=== PATIENT | female | born 1960 | race Caucasian/White ===

== ENCOUNTER 2017-07-04 07:16 | Inpatient (IN) ==
--- NOTE | 2017-07-04 16:33 | Internal Med History&Physical ---
Date of Encounter: 07/04/17 Time of Encounter: 16:31 Assessment and Plan (1) CVA (cerebral vascular accident) Current visit: Yes Status: Acute Patient is here for rehabilitation. She status post CVA after being admitted for CHF Qualifiers: CVA mechanism: other Qualified Code(s): I63.8 - Other cerebral infarction (2) Weakness of right lower extremity Current visit: Yes Status: Acute Consequences of ischemic infarct in the viri (3) Diabetes Current visit: No Status: Chronic Qualifiers: Diabetes mellitus type: type 2 Diabetes mellitus complication status: with unspecified complications Diabetes mellitus middle or intermediate school principal insulin use: with middle or intermediate school principal use Qualified Code(s): E11.8 - Type 2 diabetes mellitus with unspecified complications (4) Morbid obesity with BMI of 40.0-44.9, adult Current visit: No Status: Chronic Internal Medicine - H&P: HPI Chief complaint: Patient is morbidly obese his breathing problems congestive heart failure a Admitted From: Hospital to Hospital Transfer Plans for Post Hospital Care: Home History of present illness: Ms. Lopez is a 56 year old female Past Med Surg Social Fam HX - Past Medical History Medical history: asthma, CHF, CVA, diabetes, hyperlipidemia, hypertension, renal disease, other Psychiatric history: anxiety, depression - Past Surgical History Surgical History: other - Social History Smoking Status: Former smoker Smokeless Tobacco Status: No Alcohol use: none Drug use: none - Family History Mother Family Member Ethnicity: Non- Living Status: Still Living Hx Family Cardiac Disorders: Yes (Stroke) Hx Family Endocrine Disorder: Yes (Diabetes) Hx Family Neurologic Disorders: Yes (Stroke) Brother Family Member Ethnicity: Non- Living Status: Still Living Hx Family Cancer: Yes (Cancerous mole) Sister Family Member Ethnicity: Non- Living Status: Still Living Hx Family GI Disorders: Yes (Colon issues) Grandmother Family Member Ethnicity: Non- Living Status: Hx Family Cancer: Yes (Breast) Father Adopted: No Family Member Ethnicity: Non- Living Status: Hx Family Cardiac Disorders: Yes (CAD) Hx Family Respiratory Disorders: Yes Hx Family Cancer: Yes (Lung) Hx Family Endocrine Disorder: Yes (DM) Daughter Adopted: No Family Member Ethnicity: Non- Living Status: Still Living Hx Family Cardiac Disorders: Yes Hx Family Endocrine Disorder: Yes Hx Family Neuromuscular Disorders: Yes Hx Family Neurologic Disorders: Yes Internal Medicine - H&P: Meds Escitalopram [Lexapro] 20 mg PO DAILY #30 tablet 04/03/15 [Rx] Simvastatin [Zocor] 40 mg PO HS #30 tablet 04/03/15 [Rx] Lisinopril [Zestril] 20 mg PO DAILY 12/13/15 [History] Aspirin [Ecotrin] 325 mg PO DAILY 06/21/16 [History] Ferrous Sulfate 325 mg PO BIDWM #60 tablet 05/17/17 [Rx] Ergocalciferol (VITAMIN D2) [Vitamin D2] 50,000 unit PO GOMES 06/13/17 [History] Insulin NPH/REG 70/30 [HumuLIN 70/30 VIAL] 25 unit SQ BIDWM 06/13/17 [History] Gabapentin [Neurontin] 300 mg PO TID #90 capsule 06/19/17 [Rx] Docusate [Colace] 200 mg PO DAILY 06/27/17 [History] Acetaminophen [Tylenol] 650 mg PO Q6HR PRN tablet 07/04/17 [Rx] Benzonatate [Tessalon] 100 mg PO TID PRN capsule 07/04/17 [Rx] Clopidogrel [Plavix] 75 mg PO DAILY tablet 07/04/17 [Rx] Folic Acid 5 mg PO DAILY tablet 07/04/17 [Rx] Furosemide [Lasix] 40 mg PO BIDDIURETIC tablet 07/04/17 [Rx] HYDROcodone/Acet 5/325 mg [Hewlett 5-325 mg] 1 tab PO Q4HR PRN #14 tablet [Rx] Ipratropium/Albuterol Neb [Duoneb] 3 ml IH [id number] PRN inhsol 07/04/17 [Rx] Labetalol [Trandate] 200 mg PO Q8HR tablet 07/04/17 [Rx] amLODIPine [Norvasc] 10 mg PO DAILY #0 tablet 07/04/17 [Rx] 3 Allergy/AdvReac Type Severity Reaction Status Date / Time No Known Allergies Allergy Verified 06/27/17 12:19 All Systems PM: A 10-system review of systems was performed and is negative for pertinent findings except as documented above in the HPI. - Constitutional Constitutional: falls, lethargy, no anorexia, no chills, no excessive sweating, no fatigue, no malaise, no night sweats, no weakness, no weight gain, no weight loss - EENT Eyes: no blurry vision, no change in vision, no decreased night vision, no diplopia, no discharge, no dry eye, no floaters, no irritation, no itchy eyes, no loss of peripheral vision, no loss of vision, no pain, no seeing flashes, no tunnel vision, no other visual disturbances Ears: no decreased hearing, no ear discharge, no ear pain, no tinnitus Nose, mouth and throat: no bleeding gums, no change in voice, no dental pain, no dry mouth, no dysphagia, no epistaxis, no lip swelling, no mouth pain, no nasal congestion, no nasal discharge, no nasal obstruction, no neck mass, no odynophagia, no post-nasal drip, no sinus pain, no sinus pressure, no sore throat, no throat swelling, no tongue swelling - Breasts Breasts: no change in shape, no mass, no pain, no nipple discharge, no skin changes, no swelling - Cardiovascular Cardiovascular ROS IM: diaphoresis, dyspnea, dyspnea on exertion, edema, irregular heart rhythm, orthopnea, no chest pain, no claudication, no lightheadedness, no palpitations, no paroxysmal nocturnal dyspnea, no syncope - Respiratory Respiratory: as per HPI, cough, no dyspnea on exertion, no wheezing, no snoring , no stridor, no pain on inspiration, no chest congestion, no excessive phlegm production, no change in phlegm color, no pain with cough - Gastrointestinal Gastrointestinal: no abdominal pain, no belching, no bloating, no change in bowel habits, no change in stool character, no coffee ground emesis, no constipation, no cramping, no diarrhea, no dyspepsia, no excessive flatus, no fecal incontinence, no heartburn, no hematemesis, no hematochezia, no loose stools, no melena, no nausea, no odynophagia, no tenesmus, no vomiting - Genitourinary Genitourinary: no abnormal menses, no abnormal vaginal bleeding, no amenorrhea, no breast change in shape, no breast mass, no breast pain, no breast skin changes, no breast swelling, no change in libido, no change in urinary stream, no difficulty conceiving, no difficulty urinating, no dysmenorrhea, no dyspareunia, no flank pain, no genital lesions, no genital pruritis, no hematuria, no hot flashes, no light periods, no menorrhagia, no metrorrhagia, no nipple discharge, no nocturia, no pelvic pain, no post void dribbling, no prolapse symptoms, no sexual dysfunction, no urinary frequency, no urinary hesitancy, no urinary incontinence, no urinary urgency, no vaginal discharge, no vaginal dryness, no vaginal odor, no vaginal pruritis Menstruation: amenorrhea (Not applicable), amenorrhea on BC - Musculoskeletal Musculoskeletal ROS IM: back pain, joint swelling, muscle weakness, neck pain, stiffness, no arthralgias, no atrophy, no deformity, no limited range of motion , no muscle cramps, no myalgias, no numbness, no tingling - Integumentary Integumentary IM: erythema, no new lesions, no pruritus, no rash, no skin ulcer , no unusual bruising, no jaundice - Neurological Neurological ROS: disequilibrium, focal weakness, frequent falls, no abnormal gait, no abnormal hearing, no abnormal movements, no abnormal speech, no behavioral changes, no burning sensations, no confusion, no convulsions, no dizziness, no headache(s), no loss of vision, no memory loss, no numbness, no paresthesias, no radicular pain, no restless legs, no tingling, no tremor(s), no vertigo, no weakness, no other visual disturbances - Psychiatric Psychiatric: no abnormal sleep pattern, no anhedonia, no behavioral changes, no change in appetite, no change in libido, no difficulty concentrating, no hallucinations, no homicidal ideation, no hopelessness, no irritability, no memory loss - Endocrine Endocrine IM: no cold intolerance, no deeping of the voice, no excessive sweating, no fatigue, no flushing, no heat intolerance, no polydipsia, no polyphagia, no polyuria - Hematologic/Lymphatic Hematologic/Lymphatic: no easy bleeding, no easy bruising, no lymphadenopathy - Allergic/Immunologic Allergic/Immunologic: no tongue swelling, no throat swelling, no itchy eyes, no uticaria, no wheezing, no GI upset with certain foods, no lip swelling, no other - Head Head exam: Present: atraumatic, normal inspection, normocephalic - Neck Neck exam general surgery: Present: supple, trachea midline. Absent: lymphadenopathy - Respiratory Respiratory exam: Present: CTAB. Absent: accessory muscle use, rales, rhonchi, wheezes - Cardiovascular Cardiovascular exam: Present: RRR, +S1, +S2. Absent: diastolic murmur, gallop, rubs, systolic murmur Internal Med - H&P Results - Labs Labs: Lab is pending
[2017-07-04] MEDS ORDERED: Ipratropium/Albuterol Neb 3 ML IH PRN (17:11)
[2017-07-04] MEDS ORDERED: Acetaminophen 325 MG TABLET PO PRN (17:11)
[2017-07-04] MEDS ORDERED: Benzonatate 100 MG CAPSULE PO PRN (17:11)
[2017-07-04] MEDS: Insulin NPH/REG 70/30 100 UNIT/ML (x5UNIT) SQ SCH (18:33)
[2017-07-04] MEDS: Insulin NPH/REG 70/30 300 UNIT/3 ML per UNIT SQ SCH (18:37)
[2017-07-04] MEDS: *HR* HYDROcodone/Acet 5/325 mg TABLET PO PRN (21:45)
[2017-07-04] MEDS: Gabapentin 300 MG CAPSULE PO SCH (21:45)
[2017-07-05 05:45] LABS: Basophils % 0.4 %; Eosinophils # 0.4 K/mcL (0.0-0.6); Eosinophils % 5.3 %; Hematocrit 26.4 % (35.3-44.9); Hemoglobin 8.4 g/dL (11.5-15.4); Immature Granulocytes % 0.1 % (0-4); Lymphocytes # 1.7 K/mcL (0.6-4.6); Lymphocytes % 23.6 %; Mean Corpuscular HGB Conc 31.8 g/dL (31.6-35.5); Mean Corpuscular Hemoglobin 27.1 pg (28.0-33.3); Mean Corpuscular Volume 85.2 fL (83.0-100.0); Mean Platelet Volume 10.4 fL (9.4-12.4); Monocytes # 0.6 K/mcL (0.0-1.3); Monocytes % 8.6 %; Neutrophils # 4.5 K/mcL (1.6-8.9); Platelet Count 338 K/mcL (140-400); Red Cell Distribution Width 13.9 % (11.5-14.5)
[2017-07-05 05:52] LABS: INR 1.2; Prothrombin Time 12.5 Seconds (9.4-12.1)
[2017-07-05 06:01] LABS: Calcium 8.7 mg/dL (8.6-10.8); Potassium 4.2 mEq/L (3.5-4.5)
[2017-07-05] MEDS ORDERED: Furosemide 40 MG TABLET PO SCH (08:00)
[2017-07-05] MEDS: Aspirin Enteric Coated 325 MG Tablet PO SCH (08:02)
[2017-07-05] MEDS: *HR* HYDROcodone/Acet 5/325 mg TABLET PO PRN ×4 (08:02→23:27)
[2017-07-05] MEDS: Gabapentin 300 MG CAPSULE PO SCH ×3 (08:03→23:26)
[2017-07-05] MEDS: amLODIPine 5 MG TABLET PO SCH (08:03)
[2017-07-05] MEDS: Folic Acid 1 MG TABLET PO SCH (08:04)
[2017-07-05] MEDS: Lisinopril 20 MG TABLET PO SCH (08:04)
[2017-07-05] MEDS: Insulin NPH/REG 70/30 300 UNIT/3 ML per UNIT SQ SCH (08:12)
--- NOTE | 2017-07-05 15:26 | Internal Med Progress Note ---
Date of Encounter: 07/05/17 Time of Encounter: 15:24 - Assessment and plan (1) CVA (cerebral vascular accident) Current Visit: Yes Status: Acute Assessment and plan: She was admitted to the hospital for shortness of breath. She has chronic underlying diseases such as CHF but woke up with weakness on the right side and some dysarthria Qualifiers: CVA mechanism: other Qualified Code(s): I63.8 - Other cerebral infarction (2) Weakness of right lower extremity Current Visit: Yes Status: Acute Assessment and plan: No nuts which she is here for she is working with therapist (3) Diabetes Current Visit: No Status: Chronic Assessment and plan: Known diabetic following blood sugars and blood sugar was high but the other 2 were at least modest. Qualifiers: Diabetes mellitus type: type 2 Diabetes mellitus complication status: with unspecified complications Diabetes mellitus jail insulin use: with jail use Qualified Code(s): E11.8 - Type 2 diabetes mellitus with unspecified complications (4) Morbid obesity with BMI of 40.0-44.9, adult Current Visit: No Status: Chronic Assessment and plan: Noted - Time Spent With Patient less than 15 minutes - Subjective Interval history: Actually patient did better than I anticipated. Her speech is a little bit easier to come out I think she is not as tired as she probably was yesterday. Also the back pain and neck pain which are preexisted to her stroke are helped a lot bye K pads. So we will continue to do that. OT said with minimal assistance she got to the edge of the bed and got up and was able to scoot to the chair. She has a walk any distance yet. - Constitutional Vitals: Temp Pulse Resp BP Pulse Ox 98 F 95 14 176/90 95 07/05/17 08:00 07/05/17 08:00 07/05/17 08:00 07/05/17 08:00 07/05/17 08:00 General appearance: Present: disheveled, A&O X 3, morbidly obese, pleasant - Head Head exam: Present: atraumatic, normal inspection, normocephalic - Neck Neck exam general surgery: Present: supple, trachea midline. Absent: lymphadenopathy - Respiratory Respiratory exam: Present: CTAB. Absent: accessory muscle use, rales, rhonchi, wheezes - Cardiovascular Cardiovascular exam: Present: RRR, +S1, +S2. Absent: diastolic murmur, gallop, rubs, systolic murmur Internal Medicine: Result - Labs CBC & Chem 7: 07/05/17 05:10 07/05/17 05:10 Labs: Short CBC 07/05/17 Range/Units 05:10 WBC 7.2 (4.3-11.1) K/mcL Hgb 8.4 L (11.5-15.4) g/dL Hct 26.4 L (35.3-44.9) % Plt Count 338 (140-400) K/mcL Neutrophils # 4.5 (1.6-8.9) K/mcL BMP 07/05/17 05:10 Sodium 141 Potassium 4.2 Chloride 112 H Carbon Dioxide 24 BUN 49 H Creatinine 2.00 H Glucose 146 H Calcium 8.7 She has a little chronic renal failure will follow this. - ABG Interpretation ABG results: PT/INR, D-dimer PT 12.5 Seconds (9.4-12.1) H 07/05/17 05:10 Consult Discharge Plan - Plan Referrals: Flaco Hernandez MD [Primary Care Provider] -
[2017-07-05] MEDS: Furosemide 40 MG TABLET PO SCH (16:26)
[2017-07-05] MEDS: Bumetanide 1 MG TABLET PO SCH (16:26)
[2017-07-05] MEDS: Insulin NPH/REG 70/30 100 UNIT/ML (x5UNIT) SQ SCH (17:33)
[2017-07-06] MEDS: Bumetanide 1 MG TABLET PO SCH ×2 (08:03→16:53)
[2017-07-06] MEDS: *HR* HYDROcodone/Acet 5/325 mg TABLET PO PRN ×3 (08:03→20:10)
[2017-07-06] MEDS: amLODIPine 5 MG TABLET PO SCH (08:03)
[2017-07-06] MEDS: Aspirin Enteric Coated 325 MG Tablet PO SCH (08:03)
[2017-07-06] MEDS: Lisinopril 20 MG TABLET PO SCH (08:04)
[2017-07-06] MEDS: Folic Acid 1 MG TABLET PO SCH (08:05)
[2017-07-06] MEDS: Furosemide 40 MG TABLET PO SCH ×2 (08:05→16:54)
[2017-07-06] MEDS: Gabapentin 300 MG CAPSULE PO SCH ×3 (08:06→20:10)
[2017-07-06] MEDS: Insulin NPH/REG 70/30 100 UNIT/ML (x5UNIT) SQ SCH ×2 (08:08→16:51)
--- NOTE | 2017-07-06 16:54 | Internal Med Progress Note ---
Date of Encounter: 07/06/17 Time of Encounter: 16:29 - Assessment and plan (1) CVA (cerebral vascular accident) Current Visit: Yes Status: Acute Assessment and plan: Patient had a CVA while undergoing treatment for CHF and edema and was transferred here for rehabilitation. She speaking much better and actually moving labetalol already Qualifiers: CVA mechanism: other Qualified Code(s): I63.8 - Other cerebral infarction (2) Weakness of right lower extremity Current Visit: Yes Status: Acute Assessment and plan: CPT OT TR notes that she is actually moving her right side a little better (3) Diabetes Current Visit: No Status: Chronic Assessment and plan: Will follow blood sugars Qualifiers: Diabetes mellitus type: type 2 Diabetes mellitus complication status: with unspecified complications Diabetes mellitus terminologist insulin use: with terminologist use Qualified Code(s): E11.8 - Type 2 diabetes mellitus with unspecified complications (4) Morbid obesity with BMI of 40.0-44.9, adult Current Visit: No Status: Chronic Assessment and plan: Noted - Time Spent With Patient less than 15 minutes - Subjective Interval history: The readings doing well speech reported that she had some throat erythema but it looks fine today. She does not complain of anything except cold. - Constitutional Vitals: Temp Pulse Resp BP Pulse Ox 98.0 F 70 16 177/90 96 07/06/17 11:00 07/06/17 12:53 07/06/17 12:53 07/06/17 12:53 07/06/17 12:53 General appearance: Present: disheveled, A&O X 3, morbidly obese, pleasant - Head Head exam: Present: atraumatic, normal inspection, normocephalic - Neck Neck exam general surgery: Present: supple, trachea midline. Absent: lymphadenopathy - Respiratory Respiratory exam: Present: CTAB. Absent: accessory muscle use, rales, rhonchi, wheezes - Cardiovascular Cardiovascular exam: Present: RRR, +S1, +S2. Absent: diastolic murmur, gallop, rubs, systolic murmur Internal Medicine: Result - Labs CBC & Chem 7: 07/05/17 05:10 07/05/17 05:10 - ABG Interpretation ABG results: PT/INR, D-dimer PT 12.5 Seconds (9.4-12.1) H 07/05/17 05:10 Consult Discharge Plan - Plan Referrals: Andi Doshi DO [Partnered Physician] - 07/10/17 10:00 am ([facility] [facility] [address] [facility]. [facility] [id number] ) Flaco Hernandez MD [Primary Care Provider] -
[2017-07-07] MEDS: amLODIPine 5 MG TABLET PO SCH (09:06)
[2017-07-07] MEDS: Aspirin Enteric Coated 325 MG Tablet PO SCH (09:06)
[2017-07-07] MEDS: *HR* HYDROcodone/Acet 5/325 mg TABLET PO PRN ×3 (09:06→21:33)
[2017-07-07] MEDS: Folic Acid 1 MG TABLET PO SCH (09:07)
[2017-07-07] MEDS: Gabapentin 300 MG CAPSULE PO SCH ×3 (09:07→21:33)
[2017-07-07] MEDS: Furosemide 40 MG TABLET PO SCH ×2 (09:07→16:06)
[2017-07-07] MEDS: Bumetanide 1 MG TABLET PO SCH ×2 (09:07→16:05)
[2017-07-07] MEDS: Lisinopril 20 MG TABLET PO SCH (09:08)
[2017-07-07] MEDS: Insulin NPH/REG 70/30 100 UNIT/ML (x5UNIT) SQ SCH ×2 (10:12→17:02)
[2017-07-07 16:29] LABS: Calcium 9.3 mg/dL (8.6-10.8); Potassium 4.2 mEq/L (3.5-4.5)
--- NOTE | 2017-07-07 18:53 | Internal Med Progress Note ---
Date of Encounter: 07/07/17 Time of Encounter: 18:32 - Assessment and plan (1) CVA (cerebral vascular accident) Current Visit: Yes Status: Acute Assessment and plan: Patient had a CVA while undergoing treatment for CHF and edema and was transferred here for rehabilitation. She speaking much better and improved strength Qualifiers: CVA mechanism: other Qualified Code(s): I63.8 - Other cerebral infarction (2) Weakness of right lower extremity Current Visit: Yes Status: Acute Assessment and plan: CPT OT TR notes that she is actually moving her right side a little better (3) Diabetes Current Visit: No Status: Chronic Assessment and plan: Will follow blood sugars Qualifiers: Diabetes mellitus type: type 2 Diabetes mellitus complication status: with unspecified complications Diabetes mellitus time study engineer insulin use: with time study engineer use Qualified Code(s): E11.8 - Type 2 diabetes mellitus with unspecified complications (4) HTN (hypertension) Current Visit: No Status: Chronic Assessment and plan: - not controlled - one time amlodipin 5mg - continue to watch in 30min, if still elevated >150/90 can administer another 5mg Qualifiers: Hypertension type: essential hypertension Qualified Code(s): I10 - Essential (primary) hypertension (5) CKD (chronic kidney disease) stage 3, GFR 30-59 ml/min Current Visit: No Status: Chronic (6) Congestive heart failure Current Visit: No Status: Acute Assessment and plan: - elevated BP and crackles on examination today indicative of fluid overload - Pt is on BID lasix 80mg - Also on bumex 0.5mg BID which is increased to 1mg BID - continue fluid restriction of 1500ml daily - cardiac diet Qualifiers: Congestive heart failure type: unspecified congestive heart failure type Congestive heart failure chronicity: acute on chronic Qualified Code(s): I50.9 - Heart failure, unspecified - Time Spent With Patient 25 - 35 minutes - Subjective Interval history: no pain, no complaints Tried from physical therapy and reports feeling stronger now - Constitutional Vitals: Temp Pulse Resp BP Pulse Ox 97.5 F L 72 16 180/81 92 07/07/17 08:00 07/07/17 08:00 07/07/17 08:00 07/07/17 08:00 07/07/17 08:00 General appearance: Present: disheveled, A&O X 3, morbidly obese, pleasant - Respiratory Respiratory exam: Absent: accessory muscle use, rhonchi, stridor, wheezes - Cardiovascular Cardiovascular exam: Present: RRR, +S1, +S2. Absent: rubs - GI/Abdominal GI/Abdominal exam: Present: normal bowel sounds - Extremities Exam Extremities exam: Absent: calf tenderness - Neurological Exam Neurological exam: Absent: reflexes normal, strengths equal and symetr throughout, facial droop, speech deficit Additional comments: brisk reflexes Lower extremity 3/5 bilaterally discrepancy of the upper extremity strength - Psychiatric Psychiatric exam: Absent: agitated, anxious, depressed Internal Medicine: Result - Labs CBC & Chem 7: 07/05/17 05:10 07/07/17 16:00 Labs: BMP 07/07/17 16:00 Sodium 140 Potassium 4.2 Chloride 110 H Carbon Dioxide 22 BUN 45 H Creatinine 2.08 H Glucose 141 H Calcium 9.3 - ABG Interpretation ABG results: PT/INR, D-dimer PT 12.5 Seconds (9.4-12.1) H 07/05/17 05:10 Consult Discharge Plan - Plan Referrals: Andi Doshi DO [Partnered Physician] - 07/10/17 10:00 am ([facility] [address] [facility] [id number] ) Flaco Hernandez MD [Primary Care Provider] -
[2017-07-07] MEDS ORDERED: amLODIPine 5 MG TABLET PO ONE (19:15)
[2017-07-08] MEDS: Insulin NPH/REG 70/30 100 UNIT/ML (x5UNIT) SQ SCH ×2 (09:46→17:28)
[2017-07-08] MEDS: Aspirin Enteric Coated 325 MG Tablet PO SCH (09:53)
[2017-07-08] MEDS: *HR* HYDROcodone/Acet 5/325 mg TABLET PO PRN ×2 (09:54→21:35)
[2017-07-08] MEDS: Bumetanide 1 MG TABLET PO SCH ×2 (09:54→17:29)
[2017-07-08] MEDS: Furosemide 40 MG TABLET PO SCH ×2 (09:54→17:29)
[2017-07-08] MEDS: Gabapentin 300 MG CAPSULE PO SCH ×3 (09:55→21:34)
[2017-07-08] MEDS: Folic Acid 1 MG TABLET PO SCH (09:55)
[2017-07-08] MEDS: amLODIPine 5 MG TABLET PO SCH (09:55)
[2017-07-08] MEDS: Lisinopril 20 MG TABLET PO SCH (09:56)
[2017-07-08] MEDS ORDERED: D5% in Water 1,000 ML IVC PRN (13:46)
[2017-07-08] MEDS ORDERED: Dextrose Gel 15 GM PO PRN ×2 (13:46)
[2017-07-08] MEDS ORDERED: *HR* Dextrose 50 % in Water (Syg) 50 ML SYRINGE IVP PRN (13:46)
--- NOTE | 2017-07-08 14:13 | Internal Med Progress Note ---
Date of Encounter: 07/08/17 Time of Encounter: 14:11 - Assessment and plan (1) CVA (cerebral vascular accident) Current Visit: Yes Status: Acute Assessment and plan: -Patient had a CVA while undergoing treatment for CHF -transferred here for rehabilitation. -She speaking much better and improved strength Qualifiers: CVA mechanism: other Qualified Code(s): I63.8 - Other cerebral infarction (2) Weakness of right lower extremity Current Visit: Yes Status: Acute Assessment and plan: CPT OT TR notes that she is actually moving her right side a little better (3) Diabetes Current Visit: No Status: Chronic Assessment and plan: Hypoglycemia overnight per nursing - holding morning NPH dosage Stablized sugars now - Placed the pt on high sensitivity insulin sliding scale Qualifiers: Diabetes mellitus type: type 2 Diabetes mellitus complication status: with unspecified complications Diabetes mellitus [facility] insulin use: with intermediate frame tender use Qualified Code(s): E11.8 - Type 2 diabetes mellitus with unspecified complications (4) HTN (hypertension) Current Visit: No Status: Chronic Assessment and plan: - not controlled - on multiple BP meds including - Amlodipin 10mg - Labetalol 200 Q8h - Lasix 80 BID - Bumex increased to 1mg BID on 07/07/17 - goal with CVA in the past <140/80 Qualifiers: Hypertension type: essential hypertension Qualified Code(s): I10 - Essential (primary) hypertension (5) CKD (chronic kidney disease) stage 3, GFR 30-59 ml/min Current Visit: No Status: Chronic Assessment and plan: Will monitor BMP tomorrow - Cr stable at 2 now (6) Congestive heart failure Current Visit: No Status: Acute Assessment and plan: - elevated BP and crackles on examination today indicative of fluid overload - Pt is on BID lasix 80mg - bumex increased to 1mg BID - continue fluid restriction of 1500ml daily - cardiac diet Qualifiers: Congestive heart failure type: unspecified congestive heart failure type Congestive heart failure chronicity: acute on chronic Qualified Code(s): I50.9 - Heart failure, unspecified (7) Fall Current Visit: No Status: Acute Assessment and plan: history of fall during rehab - worked up with pelvic CT, reviewed and no fractures red - pt to continue using heat pad and continue PT Qualifiers: Encounter type: subsequent encounter Qualified Code(s): W19.XXXD - Unspecified fall, subsequent encounter - Time Spent With Patient less than 15 minutes - Subjective Interval history: pelvic pain and neck pain reports that she is peeing more than the usual now acknowledge that her diuretics has been increased overall, feels that PT has helped her tremendously - Constitutional Vitals: Temp Pulse Resp BP Pulse Ox 97.6 F 77 16 119/88 97 07/08/17 07:08 07/08/17 07:08 07/08/17 07:08 07/08/17 07:08 07/08/17 07:08 General appearance: Present: disheveled, A&O X 3, morbidly obese, pleasant - Head Head exam: Present: atraumatic, normocephalic - Eye Eye exam: Present: PERRL, conjuntiva pink, sclera anicteric Pupils: Present: PERRL - Neck Neck exam general surgery: Present: supple, trachea midline. Absent: lymphadenopathy - Respiratory Respiratory exam: Present: CTAB. Absent: accessory muscle use, rales, rhonchi, wheezes - Cardiovascular Cardiovascular exam: Present: RRR, +S1, +S2. Absent: diastolic murmur, gallop, rubs, systolic murmur - GI/Abdominal GI/Abdominal exam: Present: normal bowel sounds, soft, no peritoneal signs. Absent: distended, tenderness - Extremities Exam Extremities exam: Present: pedal edema, warm, radial pulses palpable and symmetrical. Absent: calf tenderness, cyanotic - Neurological Exam Neurological exam: Present: CN II-XII intact, oriented X3, no focal deficits. Absent: pronater drift, facial droop, speech deficit Additional comments: B/l lower extremities 3/5 in strength - Skin Skin exam: Absent: erythema Internal Medicine: Result - Labs CBC & Chem 7: 07/05/17 05:10 07/07/17 16:00 Labs: BMP 07/07/17 16:00 Sodium 140 Potassium 4.2 Chloride 110 H Carbon Dioxide 22 BUN 45 H Creatinine 2.08 H Glucose 141 H Calcium 9.3 - ABG Interpretation ABG results: PT/INR, D-dimer PT 12.5 Seconds (9.4-12.1) H 07/05/17 05:10 - VTE Documentation of Mechanical Device: Graduated compression elastic hosiery Consult Discharge Plan - Plan Referrals: Andi Doshi DO [Partnered Physician] - 07/10/17 10:00 am ([facility] [place] 140 [facility]. [facility] [id number] ) Flaco Hernandez MD [Primary Care Provider] -
[2017-07-08] MEDS: Insulin LISPRO 300 UNITS/3 ML VIAL SQ SCH ×2 (17:27→21:35)
[2017-07-09 05:34] LABS: Basophils # 0.1 K/mcL (0.0-0.2); Basophils % 0.7 %; Eosinophils # 0.3 K/mcL (0.0-0.6); Eosinophils % 4.8 %; Hematocrit 25.9 % (35.3-44.9); Hemoglobin 8.4 g/dL (11.5-15.4); Immature Granulocytes % 0.6 % (0-4); Lymphocytes # 2.4 K/mcL (0.6-4.6); Lymphocytes % 33.3 %; Mean Corpuscular HGB Conc 32.4 g/dL (31.6-35.5); Mean Corpuscular Hemoglobin 27.2 pg (28.0-33.3); Mean Corpuscular Volume 83.8 fL (83.0-100.0); Monocytes # 0.6 K/mcL (0.0-1.3); Monocytes % 7.9 %; Neutrophils # 3.7 K/mcL (1.6-8.9); Platelet Count 346 K/mcL (140-400); Red Blood Count 3.09 M/mcL (3.82-4.97); Segmented Neutrophils % 52.7 %
[2017-07-09 05:50] LABS: Calcium 8.6 mg/dL (8.6-10.8)
[2017-07-09] MEDS: Bumetanide 1 MG TABLET PO SCH ×2 (08:37→15:14)
[2017-07-09] MEDS: amLODIPine 5 MG TABLET PO SCH (08:38)
[2017-07-09] MEDS: Aspirin Enteric Coated 325 MG Tablet PO SCH (08:38)
[2017-07-09] MEDS: Folic Acid 1 MG TABLET PO SCH (08:38)
[2017-07-09] MEDS: *HR* HYDROcodone/Acet 5/325 mg TABLET PO PRN ×3 (08:38→20:10)
[2017-07-09] MEDS: Lisinopril 20 MG TABLET PO SCH (08:39)
[2017-07-09] MEDS: Insulin LISPRO 300 UNITS/3 ML VIAL SQ SCH ×4 (08:39→20:21)
[2017-07-09] MEDS: Gabapentin 300 MG CAPSULE PO SCH ×3 (08:39→20:10)
[2017-07-09] MEDS: Insulin NPH/REG 70/30 100 UNIT/ML (x5UNIT) SQ SCH ×2 (08:39→16:58)
[2017-07-09] MEDS: Furosemide 40 MG TABLET PO SCH ×2 (08:39→15:15)
--- NOTE | 2017-07-09 15:34 | Internal Med Progress Note ---
Date of Encounter: 07/09/17 Time of Encounter: 15:33 - Assessment and plan (1) CVA (cerebral vascular accident) Current Visit: Yes Status: Acute Assessment and plan: Patient had CVA was in the hospital for CHF Qualifiers: CVA mechanism: other Qualified Code(s): I63.8 - Other cerebral infarction (2) Weakness of right lower extremity Current Visit: Yes Status: Acute Assessment and plan: Improvement in the right-sided weakness (3) Diabetes Current Visit: No Status: Chronic Assessment and plan: Watching blood sugar Qualifiers: Diabetes mellitus type: type 2 Diabetes mellitus complication status: with unspecified complications Diabetes mellitus detention insulin use: with detention use Qualified Code(s): E11.8 - Type 2 diabetes mellitus with unspecified complications (4) Morbid obesity with BMI of 40.0-44.9, adult Current Visit: No Status: Chronic Assessment and plan: Noted - Time Spent With Patient less than 15 minutes - Subjective Interval history: Patient's improved a lot. Her speech is really almost normal now. She is walking down the garg to therapy with a walker and much overall improvement. She still diuresing so fluid balance is still negative. - Constitutional Vitals: Temp Pulse Resp BP Pulse Ox 97.6 F 73 16 178/72 95 07/09/17 07:35 07/09/17 07:35 07/09/17 07:35 07/09/17 07:35 07/09/17 07:35 General appearance: Present: disheveled, A&O X 3, morbidly obese, pleasant - Head Head exam: Present: atraumatic, normal inspection, normocephalic - Neck Neck exam general surgery: Present: supple, trachea midline. Absent: lymphadenopathy - Respiratory Respiratory exam: Present: CTAB. Absent: accessory muscle use, rales, rhonchi, wheezes - Cardiovascular Cardiovascular exam: Present: RRR, +S1, +S2. Absent: diastolic murmur, gallop, rubs, systolic murmur - GI/Abdominal GI/Abdominal exam: Present: normal bowel sounds, soft, no peritoneal signs. Absent: distended, tenderness Internal Medicine: Result - Labs CBC & Chem 7: 07/09/17 05:00 07/09/17 05:00 Labs: Short CBC 07/09/17 Range/Units 05:00 WBC 7.1 (4.3-11.1) K/mcL Hgb 8.4 L (11.5-15.4) g/dL Hct 25.9 L (35.3-44.9) % Plt Count 346 (140-400) K/mcL Neutrophils # 3.7 (1.6-8.9) K/mcL BMP 07/09/17 05:00 Sodium 140 Potassium 4.0 Chloride 110 H Carbon Dioxide 25 BUN 42 H Creatinine 2.13 H Glucose 87 Calcium 8.6 Labs stable - ABG Interpretation ABG results: PT/INR, D-dimer PT 12.5 Seconds (9.4-12.1) H 07/05/17 05:10 - VTE Documentation of Mechanical Device: Graduated compression elastic hosiery Consult Discharge Plan - Plan Referrals: Andi Doshi DO [Partnered Physician] - 07/10/17 10:00 am ([facility] [address] [facility]. [facility] [id number] ) Flaco Hernandez MD [Primary Care Provider] -
[2017-07-10] MEDS: *HR* HYDROcodone/Acet 5/325 mg TABLET PO PRN ×3 (09:00→20:24)
[2017-07-10] MEDS: Bumetanide 1 MG TABLET PO SCH ×2 (09:00→16:26)
[2017-07-10] MEDS: Lisinopril 20 MG TABLET PO SCH (09:01)
[2017-07-10] MEDS: Furosemide 40 MG TABLET PO SCH ×2 (09:01→16:26)
[2017-07-10] MEDS: amLODIPine 5 MG TABLET PO SCH (09:01)
[2017-07-10] MEDS: Gabapentin 300 MG CAPSULE PO SCH ×3 (09:01→20:24)
[2017-07-10] MEDS: Aspirin Enteric Coated 325 MG Tablet PO SCH (09:01)
[2017-07-10] MEDS: Folic Acid 1 MG TABLET PO SCH (09:02)
[2017-07-10] MEDS: Insulin LISPRO 300 UNITS/3 ML VIAL SQ SCH ×4 (09:04→20:28)
[2017-07-10] MEDS: Insulin NPH/REG 70/30 100 UNIT/ML (x5UNIT) SQ SCH ×2 (09:04→16:31)
--- NOTE | 2017-07-10 14:18 | Internal Med Progress Note ---
Date of Encounter: 07/10/17 Time of Encounter: 14:16 - Assessment and plan (1) CVA (cerebral vascular accident) Current Visit: Yes Status: Acute Assessment and plan: Patient had CVA while in the hospital for CHF. Qualifiers: CVA mechanism: other Qualified Code(s): I63.8 - Other cerebral infarction (2) Weakness of right lower extremity Current Visit: Yes Status: Acute Assessment and plan: She is here for rehabilitation due to the stroke and right-sided weakness she had some dysphonia but it really is improved. (3) Diabetes Current Visit: No Status: Chronic Assessment and plan: Watch her blood sugars. They are somewhat labile but she is being covered at the time. Qualifiers: Diabetes mellitus type: type 2 Diabetes mellitus complication status: with unspecified complications Diabetes mellitus lead sprinkler insulin use: with halfway use Qualified Code(s): E11.8 - Type 2 diabetes mellitus with unspecified complications (4) Morbid obesity with BMI of 40.0-44.9, adult Current Visit: No Status: Chronic Assessment and plan: Noted - Time Spent With Patient less than 15 minutes - Subjective Interval history: Patient's doing well talked to her about when she goes home to continue to do her therapy. If she just sits from a counselor told her she will lose what games she is made. And she has made a lot of gains from where she was when she was admitted - Constitutional Vitals: Temp Pulse Resp BP Pulse Ox 98.0 F 82 18 176/82 94 07/10/17 07:23 07/10/17 07:23 07/10/17 07:23 07/10/17 07:23 07/10/17 07:23 General appearance: Present: disheveled, A&O X 3, morbidly obese, pleasant - Head Head exam: Present: atraumatic, normal inspection, normocephalic - Neck Neck exam general surgery: Present: supple, trachea midline. Absent: lymphadenopathy - Respiratory Respiratory exam: Present: CTAB. Absent: accessory muscle use, rales, rhonchi, wheezes - Cardiovascular Cardiovascular exam: Present: RRR, +S1, +S2. Absent: diastolic murmur, gallop, rubs, systolic murmur Internal Medicine: Result - Labs CBC & Chem 7: 07/09/17 05:00 07/09/17 05:00 Labs: Chronic renal failures noted but otherwise it looks stable - ABG Interpretation ABG results: PT/INR, D-dimer PT 12.5 Seconds (9.4-12.1) H 07/05/17 05:10 - VTE Documentation of Mechanical Device: Graduated compression elastic hosiery Consult Discharge Plan - Plan Referrals: Andi Doshi DO [Partnered Physician] - 07/10/17 10:00 am ([facility] [address] [facility]. [place] [id number] ) Flaco Hernandez MD [Primary Care Provider] -
[2017-07-11 07:34] VITALS: BP 168/84
[2017-07-11] MEDS: Insulin LISPRO 300 UNITS/3 ML VIAL SQ SCH ×2 (07:58→11:53)
[2017-07-11] MEDS: Furosemide 40 MG TABLET PO SCH (07:59)
[2017-07-11] MEDS: Bumetanide 1 MG TABLET PO SCH (07:59)
[2017-07-11] MEDS: Gabapentin 300 MG CAPSULE PO SCH ×2 (07:59→14:35)
[2017-07-11] MEDS: Folic Acid 1 MG TABLET PO SCH (07:59)
[2017-07-11] MEDS: Aspirin Enteric Coated 325 MG Tablet PO SCH (08:00)
[2017-07-11] MEDS: Lisinopril 20 MG TABLET PO SCH (08:00)
[2017-07-11] MEDS: amLODIPine 5 MG TABLET PO SCH (08:00)
[2017-07-11] MEDS: Insulin NPH/REG 70/30 100 UNIT/ML (x5UNIT) SQ SCH (08:00)
[2017-07-11] MEDS: *HR* HYDROcodone/Acet 5/325 mg TABLET PO PRN ×2 (08:17→14:35)
--- NOTE | 2017-07-11 13:47 | Discharge Summary ---
<Ace Kennedy - Last Filed: 07/11/17 13:44> Date of Encounter: 07/11/17 Time of Encounter: 13:44 - Discharge Diagnosis (1) CVA (cerebral vascular accident) Status: Acute Qualifiers: CVA mechanism: other Qualified Code(s): I63.8 - Other cerebral infarction (2) Diabetes Status: Chronic Qualifiers: Diabetes mellitus type: type 2 Diabetes mellitus complication status: with unspecified complications Diabetes mellitus manager terminal insulin use: with manager terminal use Qualified Code(s): E11.8 - Type 2 diabetes mellitus with unspecified complications (3) Morbid obesity with BMI of 40.0-44.9, adult Status: Chronic - Discharge Medications Home Medications: Escitalopram [Lexapro] 20 mg PO DAILY #30 tablet 04/03/15 [Rx] Simvastatin [Zocor] 40 mg PO HS #30 tablet 04/03/15 [Rx] Lisinopril [Zestril] 20 mg PO DAILY 12/13/15 [History] Aspirin [Ecotrin] 325 mg PO DAILY 06/21/16 [History] Ferrous Sulfate 325 mg PO BIDWM #60 tablet 05/17/17 [Rx] Ergocalciferol (VITAMIN D2) [Vitamin D2] 50,000 unit PO GOMES 06/13/17 [History] Insulin NPH/REG 70/30 [HumuLIN 70/30 VIAL] 25 unit SQ BIDWM 06/13/17 [History] Gabapentin [Neurontin] 300 mg PO TID #90 capsule 06/19/17 [Rx] Docusate [Colace] 200 mg PO DAILY 06/27/17 [History] Acetaminophen [Tylenol] 650 mg PO Q6HR PRN tablet 07/04/17 [Rx] Benzonatate [Tessalon] 100 mg PO TID PRN capsule 07/04/17 [Rx] Clopidogrel [Plavix] 75 mg PO DAILY tablet 07/04/17 [Rx] Folic Acid 5 mg PO DAILY tablet 07/04/17 [Rx] Furosemide [Lasix] 40 mg PO BIDDIURETIC tablet 07/04/17 [Rx] HYDROcodone/Acet 5/325 mg [[place] 5-325 mg] 1 tab PO Q4HR PRN #14 tablet [Rx] Ipratropium/Albuterol Neb [Duoneb] 3 ml IH [id number] PRN inhsol 07/04/17 [Rx] Labetalol [Trandate] 200 mg PO Q8HR tablet 07/04/17 [Rx] amLODIPine [Norvasc] 10 mg PO DAILY #0 tablet 07/04/17 [Rx] Allergies/Adverse Reactions: 3 Allergy/AdvReac Type Severity Reaction Status Date / Time No Known Allergies Allergy Verified 06/27/17 12:19 Date of admission: 07/04/17 16:17 Primary care physician: Flaco Hernandez, Consults: 07/04/17 17:14 Consult to Occupational Therapy [CONS] Routine Comment: Evaluate, develop and implement POC Reason for Consult: eval and treat Consult to Physical Therapy [CONS] Routine Comment: Evaluate, develop and implement POC Reason for Consult: eval and treat Consult to Recreational Therapy [CONS] Routine Comment: Evaluate, develop and implement POC Consult to Sheet Tailer [CONS] Routine Reason for SW Consult: discharge planning Consult to Speech Therapy [CONS] Routine Comment: Evaluate, develop and implement POC Reason for Consult: speech impairment Call Completed: Yes Discharging clinician: Sudhir Day Anticipated date of discharge: 07/11/17 - Patient Status Disposition: Home, Self-Care Condition: Fair Functional capacity at discharge: uses cane/walker Overall status at discharge: patient is progressing back to baseline - Discharge Instructions Follow Up With: Andi Doshi DO [Partnered Physician] - 07/24/17 11:15 am ([place] [id number] ) Flaco Hernandez MD [Primary Care Provider] - 07/17/17 3:00 pm (hospital follow up) Additional Instructions: . - Diet and Activity Activity: ambulate only with your walker, increase activity as tolerated Interval History: Patient was admitted for rehabilitation due to debilitation secondary to CVA. Patient participated in PT/OT and progressed well. Patient continues to have unsteady gait and continues to require a wheeled Walker for assistive device. Patient's neurological exam remained stable throughout hospitalization at this facility with her exam remaining stable to her documented baseline from previous hospitalization. Patient's blood sugars were monitored with changes made in coverage and over the past week have remained stable. Patient's labs were reviewed with changes made in her plan of care for acute issues. Patient' s history of CHF in chronic kidney disease remained stable throughout her hospitalization at this facility. Patient's renal labs showed no changes from her baseline with creatinine of 2.13 and the BUN of 42 during her last blood draw. Hospital course: Ms. Lopez is a 56 year old female - Time Spent with Patient Total time spent providing and/or coordinating discharge services: - Constitutional Vitals: Temp Pulse Resp BP Pulse Ox 98.1 F 84 16 168/84 98 07/11/17 07:00 07/11/17 07:00 07/11/17 07:00 07/11/17 07:00 07/11/17 07:00 General appearance: Present: disheveled, A&O X 3, morbidly obese, pleasant - Head Head exam: Present: atraumatic, normocephalic - Respiratory Respiratory exam: Present: CTAB. Absent: accessory muscle use, rales, rhonchi, wheezes Additional comments: Respiratory rate is regular and relaxed. Lungs are clear to auscultation to upper elizalde but diminished throughout lower elizalde, likely secondary to her obesity - Cardiovascular Cardiovascular exam: Present: RRR, +S1, +S2. Absent: diastolic murmur, gallop, rubs, systolic murmur - GI/Abdominal GI/Abdominal exam: Present: normal bowel sounds, soft, no peritoneal signs. Absent: distended, tenderness - Neurological Exam Neurological exam: Present: CN II-XII intact, oriented X3. Absent: no focal deficits, pronater drift, facial droop, speech deficit Additional comments: Noted moderate generalized weakness, with MS R>L. Pt continue to have generalized weakness of lower extremities and requires a walker for ambulation - Skin Skin exam: Present: dry, intact - VTE Documentation of Mechanical Device: Graduated compression elastic hosiery <Sudhir Day - Last Filed: 07/11/17 14:23> Date of Encounter: 07/11/17 - Discharge Diagnosis (1) CVA (cerebral vascular accident) Priority: Primary Status: Acute Qualifiers: CVA mechanism: other Qualified Code(s): I63.8 - Other cerebral infarction (2) Weakness of right lower extremity Priority: Primary Status: Acute (3) Diabetes Priority: Secondary Status: Chronic Qualifiers: Diabetes mellitus type: type 2 Diabetes mellitus complication status: with unspecified complications Diabetes mellitus manager terminal insulin use: with manager terminal use Qualified Code(s): E11.8 - Type 2 diabetes mellitus with unspecified complications (4) Morbid obesity with BMI of 40.0-44.9, adult Priority: Secondary Status: Chronic Date of admission: 07/04/17 16:17 Primary care physician: Flaco Hernandez, Consults: 07/04/17 17:14 Consult to Occupational Therapy [CONS] Routine Comment: Evaluate, develop and implement POC Reason for Consult: eval and treat Consult to Physical Therapy [CONS] Routine Comment: Evaluate, develop and implement POC Reason for Consult: eval and treat Consult to Recreational Therapy [CONS] Routine Comment: Evaluate, develop and implement POC Consult to Sheet Tailer [CONS] Routine Reason for SW Consult: discharge planning Consult to Speech Therapy [CONS] Routine Comment: Evaluate, develop and implement POC Reason for Consult: speech impairment Call Completed: Yes - Patient Status Functional capacity at discharge: uses cane/walker Overall status at discharge: patient is progressing back to baseline - Diet and Activity Diet: diabetic diet Hospital course: Ms. Lopez is a 56 year old female - Time Spent with Patient Total time spent providing and/or coordinating discharge services: Less than 30 minutes - Constitutional Vitals: Temp Pulse Resp BP Pulse Ox 98.1 F 84 16 168/84 98 07/11/17 07:00 07/11/17 07:00 07/11/17 07:00 07/11/17 07:00 07/11/17 07:00 - Head Head exam: Present: atraumatic, normal inspection, normocephalic - Respiratory Respiratory exam: Present: CTAB. Absent: accessory muscle use, rales, rhonchi, wheezes - Cardiovascular Cardiovascular exam: Present: RRR, +S1, +S2. Absent: diastolic murmur, gallop, rubs, systolic murmur - GI/Abdominal GI/Abdominal exam: Present: normal bowel sounds, soft, no peritoneal signs. Absent: distended, tenderness
== END 2017-07-11 16:10 | disposition home or self-care (01) | DRG 57 ==
LOC: INPGRE 16:17
PROVIDERS: ADMIT Internal Medicine; ATTEND Internal Medicine